=== PATIENT | female | born 1990 | race Caucasian/White ===

== ENCOUNTER 2019-05-02 10:10 | Emergency (ER) | payer BC ==
--- OUTSIDE RECORDS SUMMARY | 2019-05-02 10:19 | XMS REPORT ---
:1990 [facility] [address] [place] [address] Care Team Providers Name Role Phone Unavailable Unavailable Unavailable Problems This patient has no known problems. Allergies, Adverse Reactions, Alerts This patient has no known allergies or adverse reactions. Medications This patient has no known medications.
[2019-05-02 10:49] LABS: Absolute Lymphocytes (CBC) 2.3 K/uL (0.7-4.9); Basophils % 1.2 % (0-1.3); Hematocrit 38.2 % (36.0-45.0); Lymphocytes % 30.1 % (15.3-44.8); MPV 8.3 fL (7.6-11.3); RBC Red Blood Cell Count 4.31 M/uL (3.86-4.86)
[2019-05-02] MEDS ORDERED: NA CHLORIDE 0.9% 1,000 ML ONE (11:00)
[2019-05-02 11:02] LABS: Urine Blood TRACE (NEG); Urine Glucose NEGATIVE (NEG); Urine Protein 1+ (NEG); Urine Specific Gravity >1.030 (1.005-1.030)
--- NOTE | 2019-05-02 11:19 | RAD REPORT ---
EXAM DESCRIPTION: US - Transvaginal OB - 05/02/2019 11:06 am CLINICAL HISTORY: ABD CRAMPING, COMPARISON: No comparisons FINDINGS: A single gestational sac is seen within the uterus. The shape of the sac is within normal limits for gestational age. No yolk sac or embryo seen within the gestational sac. Based on mean sac diameter, gestational age is 5 weeks 5 days. The maternal adnexa and ovaries are within normal limits. Normal Doppler blood flow was demonstrated to both ovaries. IMPRESSION: Single gestational sac is seen within the uterus. No yolk sac or embryo is seen. This ca n still be a normal finding related to early stage of IUP. Advise followup ultrasound in 10-12 days a nd correlation with serial HCG levels.
[2019-05-02 11:29] LABS: Potassium 3.8 mmol/L (3.5-5.1)
--- NOTE | 2019-05-02 11:36 | ER ---
Nurse's Notes [facility] Name: Genna Daniel Age: 29 yrs Sex: Female : 1990 Arrival Date: 05/02/2019 Time: 10:13 Bed 19 Private MD: Diagnosis: Threatened Presentation: 05/01 10:21 Chief complaint: Patient states: Vaginal bleeding that began 2 days ago. Pt reports she ss is 6 weeks . Coronavirus screen: The patient has NOT traveled to a country currently being monitored by the [facility] within the last 14 days. Proceed with normal triage procedures. Ebola Screen: Patient denies exposure to infectious person. Patient denies travel to an Ebola-affected area in the 21 days before illness onset. Initial Sepsis Screen: Does the patient meet any 2 criteria? No. Patient's initial sepsis screen is negative. Does the patient have a suspected source of infection? No. Patient's initial sepsis screen is negative. Risk Assessment: Do you want to hurt yourself or someone else? Patient reports no desire to harm self or others. 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 - Social history:: Smoking status: Patient denies any tobacco usage or history of. - Family history:: not pertinent. Screenin:04 Abuse screen: Denies threats or abuse. Denies injuries from another. Nutritional hb screening: No deficits noted. Tuberculosis screening: No symptoms or risk factors identified. Fall Risk None identified. Assessment: 10:30 General: Appears in no apparent distress. Behavior is calm, cooperative. Pain: Pain hb currently is 0 out of 10 on a pain scale. Neuro: Level of Consciousness is awake, alert, obeys commands, Oriented to person, place, time, situation. Cardiovascular: Capillary refill < 3 seconds Patient's skin is warm and dry. Respiratory: Airway is patent Respiratory effort is even, unlabored, Respiratory pattern is regular, symmetrical. GI: No signs and/or symptoms were reported involving the gastrointestinal system. : Reports vaginal bleeding that is heavy flow. EENT: No signs and/or symptoms were reported regarding the EENT system. Derm: Skin is pink, warm \T\ dry. Musculoskeletal: No signs and/or symptoms reported regarding the musculoskeletal system. 11:15 Reassessment: Patient appears in no apparent distress at this time. Patient and/or hb family updated on plan of care and expected duration. Pain level reassessed. Patient is alert, oriented x 3, equal unlabored respirations, skin warm/dry/pink. Vital Signs: 10:21 BP 140 / 81; Pulse 83; Resp 16; Pulse Ox 100% on R/A; Weight 110.68 kg; Height 5 ft. 7 ss in. (170.18 cm); Pain 0/10; 11:04 BP 140 / 81; Pulse 80; Resp 16; Pulse Ox 100% on R/A; hb 10:21 Body Mass Index 38.22 (110.68 kg, 170.18 cm) ED Course: 10:13 Patient arrived in ED. rg4 10:16 Hiram Mendes MD is Attending Physician. malinda 10:23 Triage completed. ss 10:24 Arm band placed on left wrist. ss 10:26 Elisha Walters, RN is Primary Nurse. hb 10:28 Urine collected: clean catch specimen, clear. dh3 10:32 Patient has correct armband on for positive identification. Bed in low position. Call hb light in reach. Side rails up X 1. 10:38 Initial lab(s) drawn, by me, sent to lab. Inserted saline lock: 20 gauge in right dh3 antecubital area, using aseptic technique. Blood collected. 11:07 Transvaginal Ob In Process Unspecified. EDMS 11:31 No provider procedures requiring assistance completed. IV discontinued, intact, hb bleeding controlled, No redness/swelling at site. Pressure dressing applied. Administered Medications: 10:35 Drug: NS 0.9% 1000 ml Route: IV; Rate: 1 bolus; Site: right antecubital; hb Outcome: 11:35 Discharge ordered by . malinda 11:42 Discharged to home ambulatory. hb 11:42 Condition: stable 11:42 Discharge instructions given to patient, Instructed on discharge instructions, follow up and referral plans. medication usage, Demonstrated understanding of instructions, follow-up care, medications, Prescriptions given X 1. 12:10 Patient left the ED. hb Signatures: Dispatcher [employer] EDHiram Mclaughlin MD MD cha Smirch, Shelby, RN RN ss Baxter, Heather, RN RN hb Garcia, Rubi [facility] Alana Armijo 3
--- NOTE | 2019-05-02 11:36 | EDPHYS ---
Physician Documentation [facility] Name: Genna Daniel Age: 29 yrs Sex: Female : 1990 Arrival Date: 05/02/2019 Time: 10:13 Bed 19 Private MD: ED Physician Hiram Mendes HPI: 05/01 11:28 This 29 yrs old Female presents to ER via Ambulatory with complaints of malinda Vaginal Bleeding, + Preg <12wks. 11:28 The patient presents to the emergency department with vaginal bleeding, that is light. malinda The estimated gestational age is 6 weeks. course: care: private OB physician, Dr. muniz. Associated signs and symptoms: The patient has no apparent associated signs or symptoms. 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 - Social history:: Smoking status: Patient denies any tobacco usage or history of. - Family history:: not pertinent. ROS: 11:30 Constitutional: Negative for fever, chills, and weight loss, Eyes: Negative for injury, malinda pain, redness, and discharge, ENT: Negative for injury, pain, and discharge, Neck: Negative for injury, pain, and swelling, Cardiovascular: Negative for chest pain, palpitations, and edema, Respiratory: Negative for shortness of breath, cough, wheezing, and pleuritic chest pain, Abdomen/GI: Negative for abdominal pain, nausea, vomiting, diarrhea, and constipation, Back: Negative for injury and pain, MS/Extremity: Negative for injury and deformity, Skin: Negative for injury, rash, and discoloration, Neuro: Negative for headache, weakness, numbness, tingling, and seizure, Psych: Negative for depression, anxiety, suicide ideation, homicidal ideation, and hallucinations, Allergy/Immunology: Negative for hives, rash, and allergies, Endocrine: Negative for neck swelling, polydipsia, polyuria, polyphagia, and marked weight changes, Hematologic/Lymphatic: Negative for swollen nodes, abnormal bleeding, and unusual bruising. 11:30 : Positive for vaginal bleeding. Exam: 11:33 Constitutional: This is a well developed, well nourished patient who is awake, alert, malinda and in no acute distress. Head/Face: Normocephalic, atraumatic. Eyes: Pupils equal round and reactive to light, extra-ocular motions intact. Lids and lashes normal. Conjunctiva and sclera are non-icteric and not injected. Cornea within normal limits. Periorbital areas with no swelling, redness, or edema. ENT: Nares patent. No nasal discharge, no septal abnormalities noted. Tympanic membranes are normal and external auditory canals are clear. Oropharynx with no redness, swelling, or masses, exudates, or evidence of obstruction, uvula midline. Mucous membranes moist. Neck: Trachea midline, no thyromegaly or masses palpated, and no cervical lymphadenopathy. Supple, full range of motion without nuchal rigidity, or vertebral point tenderness. No Meningismus. Chest/axilla: Normal chest wall appearance and motion. Nontender with no deformity. No lesions are appreciated. Cardiovascular: Regular rate and rhythm with a normal S1 and S2. No gallops, murmurs, or rubs. Normal PMI, no JVD. No pulse deficits. Respiratory: Lungs have equal breath sounds bilaterally, clear to auscultation and percussion. No rales, rhonchi or wheezes noted. No increased work of breathing, no retractions or nasal flaring. Abdomen/GI: Soft, non-tender, with normal bowel sounds. No distension or tympany. No guarding or rebound. No evidence of tenderness throughout. Back: No spinal tenderness. No costovertebral tenderness. Full range of motion. Skin: Warm, dry with normal turgor. Normal color with no rashes, no lesions, and no evidence of cellulitis. MS/ Extremity: Pulses equal, no cyanosis. Neurovascular intact. Full, normal range of motion. Neuro: Awake and alert, GCS 15, oriented to person, place, time, and situation. Cranial nerves II-XII grossly intact. Motor strength 5/5 in all extremities. Sensory grossly intact. Cerebellar exam normal. Normal gait. Psych: Awake, alert, with orientation to person, place and time. Behavior, mood, and affect are within normal limits. Vital Signs: 10:21 BP 140 / 81; Pulse 83; Resp 16; Pulse Ox 100% on R/A; Weight 110.68 kg; Height 5 ft. 7 ss in. (170.18 cm); Pain 0/10; 11:04 BP 140 / 81; Pulse 80; Resp 16; Pulse Ox 100% on R/A; hb 10:21 Body Mass Index 38.22 (110.68 kg, 170.18 cm) ss MDM: 10:16 Patient medically screened. [facility] 11:34 Data reviewed: vital signs, nurses notes, lab test result(s), EKG, radiologic studies, [facility] ultrasound. 05/01 10:24 Order name: Quantitative Hcg [facility] 05/01 10:24 Order name: Abo/rh Typing; Complete Time: 11:28 [facility] 05/01 10:24 Order name: Basic Metabolic Panel [facility] 05/01 10:24 Order name: CBC with Diff; Complete Time: 11:28 [facility] 05/01 10:24 Order name: Urine Culture [facility] 05/01 10:30 Order name: Urine Dipstick--Ancillary (enter results); Complete Time: 11:28 05/01 10:24 Order name: Urine Test (obtain specimen); Complete Time: 10:43 [facility] 05/01 10:24 Order name: IV Saline Lock; Complete Time: 10:43 [facility] 05/01 10:24 Order name: Labs collected and sent; Complete Time: 10:43 [facility] 05/01 10:24 Order name: NPO; Complete Time: 10:43 [facility] 05/01 10:24 Order name: Urine Dipstick-Ancillary (obtain specimen); Complete Time: 10:43 [facility] 05/01 10:24 Order name: US Transvaginal Ob; Complete Time: 11:28 [facility] 05/01 10:30 Order name: Urine --Ancillary (enter results); Complete Time: 11:28 05/01 10:54 Order name: Labs - recollect needed: collect abo/rh no charge bd Administered Medications: 10:35 Drug: NS 0.9% 1000 ml Route: IV; Rate: 1 bolus; Site: right antecubital; hb Disposition: 05/02/19 11:35 Discharged to Home. Impression: Threatened . - Condition is Stable. - Discharge Instructions: Threatened Miscarriage, Vaginal Bleeding During , First Trimester, First Trimester of , [id number], First Trimester of , Threatened Miscarriage, [id number], Pelvic Rest. - Prescriptions for Vitamin 27- 0.8 mg Oral Tablet - take 1 tablet by ORAL route once daily; 30 tablet. - Medication Reconciliation Form, Thank You Letter, Antibiotic Education, Prescription Opioid Use form. - Follow up: Private Physician; When: 2 - 3 days; Reason: Recheck today's complaints, Continuance of care, Re-evaluation by your physician. - Problem is new. - Symptoms have improved. Signatures: Dispatcher [employer] EDMS Georgiana Saravia Corey, MD MD cha Smirch, Shelby, RN RN Elisha Walters RN RN hb Corrections: (The following items were deleted from the chart) 12:10 11:35 05/02/2019 11:35 Discharged to Home. Impression: Threatened . Condition hb is Stable. Forms are Medication Reconciliation Form, Thank You Letter, Antibiotic Education, Prescription Opioid Use. Follow up: Private Physician; When: 2 - 3 days; Reason: Recheck today's complaints, Continuance of care, Re-evaluation by your physician. Problem is new. Symptoms have improved. malinda
[2019-05-02 12:20] VITALS: BP 140/81; O2SAT 100
== END 2019-05-02 12:10 | disposition home or self-care (01) ==
LOC: ER 10:10
DX: O20.0 Threatened abortion (principal); Z3A.01 Less than 8 weeks gestation of pregnancy
CPT/HCPCS: 87088; 85025; 87086; 80048; 36415; 86900; 81025; 86901; 84702; 81003; 76817; 99284; J7030

== ENCOUNTER 2021-01-06 23:06 | Emergency (ER) | payer BC, SELFPAY ==
--- OUTSIDE RECORDS SUMMARY | 2021-01-06 23:09 | XMS REPORT | Continuity of Care Document ---
:1990 Author Organization [facility] t Address [address] [place] [address] Care Team Providers Name Role Phone May Bishop Attending Clinician Unavailable Gambino Attending Clinician Unavailable Doctor Unassigned, Name Attending Clinician Unavailable May Bishop Admitting Clinician Unavailable Physician, Primary or Family Admitting Clinician Unavailabl e Payers Payer Name Policy Type Policy Number Effective Date Expiration Date S ource Problems This patient has no known problems. Allergies, Adverse Reactions, Alerts Allergy Allergy Status Severity Reaction(s) Onset Inactive Treating Comm ents Source Name Type Date Date Clinician No Known DA Active U 2019-02 [facility] [place] No Known DA Active U 2019-02 [facility] No Known DA Active U 2019-02 [facility] No Known DA Active U 2019-02 [facility] 0 [facility] Medications This patient has no known medications. Procedures Procedure Date / Time Performed Performing Clinician [facility] gloria [id number] 2019-12-21 00:00:00 MILJO.01 [facility] Encounters Start End Encounter Admission Attending Care Care Encounter Source Date/Time Date/Time Type Type Clinicians Facility Department ID 2019-12-21 Inpatient MARLON Martinez LD [id number] [facility] 12:00:00 Tena [id number] [facility] [place] 2019-12-19 Inpatient MARLON Martinez LD [id number] [facility] 12:00:00 Tena [id number] [facility] 2019-11-29 Inpatient MARLON Martinez LD [id number] [facility] 12:00:00 Tena [facility] 2019-11-25 2019-11-25 Outpatient Camila, [facility] [id number] [facility] 09:00:00 09:00:00 Alexi [facility] 2019-08-05 2019-08-05 Outpatient Gambino, [facility] [id number] [facility] 10:00:00 10:00:00 Alexi [id number] [facility] 2019-06-17 2019-06-17 Orders Doctor HERMELINDO [id number] 00:00:00 00:00:00 Only Unassigned, MAITE [id number] [place] [facility] [id number] Results Test Description Test Time Test Comments Results Result Comments Source HGB HCT 2019-12-22 07:45:00 Test Item Value Reference Range Interpretation Comme nts HEMOGLOBIN (test code = HGB) 8.1 g/dL 10.7-13.9 L HEMATOCRIT (test code = HCT) 26.0 % 32.1-42.1 L Results verified by repeat analysis COVID 19 Asymptomatic IH [id number] 14:23:00 Test Item Value Reference Range Interpretation Comments COVID 19 NEGATIVE NEGATIVE This test has b een Asymptomatic IH AG authorize d only for the (test code = detection ofpro teins from COVNONPUIAG) SARS-CoV-2, not for any other viruses orpathogens. N egative results should be treated as presumptive andconfirmed wi th a molecular assay , if necessary for patientmanageme nt. Negative result s do not rule out COVID- 19 andshould not b e used as the sole basis for treatment orpat ient management deci sions, including infec tion controldecision s. Negative result s should be considered i n thecontext of a patient's recent exposure s, history and thepresence of clinical signs and symptoms consis tent withCOVID-19. T his test has not been FD A cleared or approved; th e test hasbeen authori zed by FDA under an Emerge ncy Use Authorization(E UA) for use by laborato torsten certified under the CLIA thatmeet the re quirements to perform mode rate, high or waivedcomple xity tests. This jamal t is authorized for use at thePoint of Car e (POC), i.e., in patien t care settingsoperati ng under a CLIA Certificat e of Waiver, Certifi justo ofCompliance, o r Certificate of Accreditation. This test is only authori zed for the duration of thedeclaration that circumstances e xist justifying theauthorizatio n of emergency use o f in vitro diagnostic test sfor detection and/o r diagnosis of CO VID-19 under Gzbjvdm78 4(b)(1) of the Act, 21 U.S .C. 360bbb-3(b)(1), unless theauthorizatio n is terminated or r evoked sooner. AG HEPATITIS B [id number] 13:51:00 Test Item Value Reference Range Interpretation Comments AG HEPATITIS B SURFACE (test code NONREACTIVE NONREACTIVE = HBSAG) IS CONSENT FORM SIGNED FOR HIV TESTING? YAB HEPATITIS C [id number] 13:51:00 Test Item Value Reference Range Interpretation Comments AB HEPATITIS C (test code = NONREACTIVE NONREACTIVE HCVAB) SIGNAL TO CUTOFF (test code = 0.04 <0.80 N CUTOFF) IS CONSENT FORM SIGNED FOR HIV TESTING? YAB [id number] 13:51:00 Test Item Value Reference Range Interpretation Comments AB TREPONEMA (test code = TREPAB) NONREACTIVE NONREACTIVE IS CONSENT FORM SIGNED FOR HIV TESTING? YAB HIV 1 13:51:00 Test Item Value Reference Range Interpretation Comments AB HIV 1 2 (test NONREACTIVE NONREACTIVE Done by Jose Elias Olivo code = [id number]) 4th Gen HIV Ag/Ab Combo Screen IS CONSENT FORM SIGNED FOR HIV TESTING? YAG HEPATITIS B [id number] 13:24:00 Test Item Value Reference Range Interpretation Comments AG HEPATITIS B SURFACE (test code NONREACTIVE NONREACTIVE = HBSAG) IS CONSENT FORM SIGNED FOR HIV TESTING? YAB HEPATITIS C [id number] 13:24:00 Test Item Value Reference Range Interpretation Comments AB HEPATITIS C (test code = HCVAB) NONREACTIVE SIGNAL TO CUTOFF (test code = CUTOFF) <0.80 IS CONSENT FORM SIGNED FOR HIV TESTING? YAB [id number] 13:24:00 Test Item Value Reference Range Interpretation Comments AB TREPONEMA (test code = TREPAB) NONREACTIVE NONREACTIVE IS CONSENT FORM SIGNED FOR HIV TESTING? YAB HIV 1 13:24:00 Test Item Value Reference Range Interpretation Comments AB HIV 1 2 (test code = [id number]) NONREACTIVE IS CONSENT FORM SIGNED FOR HIV TESTING? YAG HEPATITIS B [id number] 13:23:00 Test Item Value Reference Range Interpretation Comments AG HEPATITIS B SURFACE (test code = NONREACTIVE HBSAG) IS CONSENT FORM SIGNED FOR HIV TESTING? YAB HEPATITIS C [id number] 13:23:00 Test Item Value Reference Range Interpretation Comments AB HEPATITIS C (test code = HCVAB) NONREACTIVE SIGNAL TO CUTOFF (test code = CUTOFF) <0.80 IS CONSENT FORM SIGNED FOR HIV TESTING? YAB [id number] 13:23:00 Test Item Value Reference Range Interpretation Comments AB TREPONEMA (test code = TREPAB) NONREACTIVE NONREACTIVE IS CONSENT FORM SIGNED FOR HIV TESTING? YAB HIV 1 13:23:00 Test Item Value Reference Range Interpretation Comments AB HIV 1 2 (test code = [id number]) NONREACTIVE IS CONSENT FORM SIGNED FOR HIV TESTING? YURINALYSIS W/O [id number] 13:03:00 Test Item Value Reference Range Interpretation Comments UA GLUCOSE DIPSTICK (test code = NEGATIVE NEGATIVE DGLUU) UA KETONE DIPSTICK (test code = NEGATIVE NEGATIVE KETU) UA PROTEIN DIPSTICK (test code = NEGATIVE NEGATIVE PROU) IS NURSE PERFORMING TEST? NCBC W/AUTO [id number] 12:49:00 Test Item Value Reference Range Interpretation Comments WHITE BLOOD CELL (test code = WBC) 12.2 K/mm3 6.6-12.1 H RED BLOOD CELL (test code = RBC) 3.92 M/mm3 3.45-5.01 N HEMOGLOBIN (test code = HGB) 11.3 g/dL 10.7-13.9 N HEMATOCRIT (test code = HCT) 35.5 % 32.1-42.1 N MEAN CELL VOLUME (test code = MCV) 91 fL 84.1-94.8 N MEAN CELL HGB (test code = MCH) 28.8 pg 27-35 N MEAN CELL HGB CONCETRATION (test 31.8 gm/dL 32.2-34.1 L code = MCHC) RED CELL DISTRIBUTION WIDTH (test 13.6 % 12.4-16.5 N code = RDW) PLATELET COUNT (test code = PLT) 233 K/mm3 133-385 N MEAN PLATELET VOLUME (test code = 12.1 fl 9.1-12.7 N MPV) NEUTROPHIL % (test code = NT%) 67.9 % 56.5-79.4 N LYMPHOCYTE % (test code = LY%) 20.0 % 14.3-34.3 N MONOCYTE % (test code = MO%) 9.5 % 5.1-10.4 N EOSINOPHIL % (test code = EO%) 1.1 % 0.1-3.0 N BASOPHIL % (test code = BA%) 0.5 % 0.1-1.0 N NEUTROPHIL # (test code = NT#) 8.3 K/mm3 LYMPHOCYTE # (test code = LY#) 2.5 K/mm3 MONOCYTE # (test code = MO#) 1.2 K/mm3 EOSINOPHIL # (test code = EO#) 0.14 K/mm3 BASOPHIL # (test code = BA#) 0.1 K/mm3 RBC MORPHOLOGY REQUIRED (test code NORMAL NORMAL = RBCM) PLATELET MORPHOLOGY REQUIRED (test NORMAL NORMAL code = PLTMR) AG HEPATITIS B [id number] 13:29:00 Test Item Value Reference Range Interpretation Comments AG HEPATITIS B SURFACE (test code NONREACTIVE NONREACTIVE = HBSAG) Comments to [employer]rier: BRIANNAR 31IS CONSENT FORM SIGNED FOR HIV TESTING? YAB HEPATITIS C [id number] 13:29:00 Test Item Value Reference Range Interpretation Comments AB HEPATITIS C (test code = NONREACTIVE NONREACTIVE HCVAB) SIGNAL TO CUTOFF (test code = 0.06 <0.80 N CUTOFF) Comments to [employer]rier: LDR 31IS CONSENT FORM SIGNED FOR HIV TESTING? YAB [id number] 13:29:00 Test Item Value Reference Range Interpretation Comments AB TREPONEMA (test code = TREPAB) NONREACTIVE NONREACTIVE Comments to [employer]: LDR 31IS CONSENT FORM SIGNED FOR HIV TESTING? YAB HIV 1 13:29:00 Test Item Value Reference Range Interpretation Comments AB HIV 1 2 (test NONREACTIVE NONREACTIVE Done by Jose Elias domenicajose elias Centaur code = [id number]) 4th Gen HIV Ag/Ab Combo Screen Comments to [employer]rier: LDR 31IS CONSENT FORM SIGNED FOR HIV TESTING? YCOVID 19 Asymptomatic IH [id number] 13:24:00 Test Item Value Reference Range Interpretation Comments COVID 19 NEGATIVE NEGATIVE This test has b een Asymptomatic IH AG authorize d only for the (test code = detection ofpro teins from COVNONPUIAG) SARS-CoV-2, not for any other viruses orpathogens. N egative results should be treated as presumptive andconfirmed wi th a molecular assay , if necessary for patientmanageme nt. Negative result s do not rule out COVID- 19 andshould not b e used as the sole basis for treatment orpat ient management deci sions, including infec tion controldecision s. Negative result s should be considered i n thecontext of a patient's recent exposure s, history and thepresence of clinical signs and symptoms consis tent withCOVID-19. T his test has not been FD A cleared or approved; th e test hasbeen authori zed by FDA under an Emerge ncy Use Authorization(E UA) for use by laborato torsten certified under the CLIA thatmeet the re quirements to perform mode rate, high or waivedcomple xity tests. This jamal t is authorized for use at thePoint of Car e (POC), i.e., in patien t care settingsoperati ng under a CLIA Certificat e of Waiver, Certifi justo ofCompliance, o r Certificate of Accreditation. This test is only authori zed for the duration of thedeclaration that circumstances e xist justifying theauthorizatio n of emergency use o f in vitro diagnostic test sfor detection and/o r diagnosis of CO VID-19 under Alwfbxf23 4(b)(1) of the Act, 21 U.S .C. 360bbb-3(b)(1), unless theauthorizatio n is terminated or r evoked sooner. Comments to [employer]rier: LDR 31AG HEPATITIS B [id number] 12:51:00 Test Item Value Reference Range Interpretation Comments AG HEPATITIS B SURFACE (test code NONREACTIVE NONREACTIVE = HBSAG) Comments to [employer]rier: LDR 31IS CONSENT FORM SIGNED FOR HIV TESTING? YAB HEPATITIS C [id number] 12:51:00 Test Item Value Reference Range Interpretation Comments AB HEPATITIS C (test code = HCVAB) NONREACTIVE SIGNAL TO CUTOFF (test code = CUTOFF) <0.80 Comments to [employer]rier: LDR 31IS CONSENT FORM SIGNED FOR HIV TESTING? YAB [id number] 12:51:00 Test Item Value Reference Range Interpretation Comments AB TREPONEMA (test code = TREPAB) NONREACTIVE NONREACTIVE Comments to [employer]rier: LDR 31IS CONSENT FORM SIGNED FOR HIV TESTING? YAB HIV 1 12:51:00 Test Item Value Reference Range Interpretation Comments AB HIV 1 2 (test code = [id number]) NONREACTIVE Comments to [employer]rier: LDR 31IS CONSENT FORM SIGNED FOR HIV TESTING? YCBC W/AUTO [id number] 12:04:00 Test Item Value Reference Range Interpretation Comments WHITE BLOOD CELL (test code = WBC) 10.5 K/mm3 6.6-12.1 N RED BLOOD CELL (test code = RBC) 3.77 M/mm3 3.45-5.01 N HEMOGLOBIN (test code = HGB) 11.0 g/dL 10.7-13.9 N HEMATOCRIT (test code = HCT) 34.9 % 32.1-42.1 N MEAN CELL VOLUME (test code = MCV) 93 fL 84.1-94.8 N MEAN CELL HGB (test code = MCH) 29.2 pg 27-35 N MEAN CELL HGB CONCETRATION (test 31.5 gm/dL 32.2-34.1 L code = MCHC) RED CELL DISTRIBUTION WIDTH (test 14.0 % 12.4-16.5 N code = RDW) PLATELET COUNT (test code = PLT) 213 K/mm3 133-385 N MEAN PLATELET VOLUME (test code = 11.4 fl 9.1-12.7 N MPV) NEUTROPHIL % (test code = NT%) 66.3 % 56.5-79.4 N LYMPHOCYTE % (test code = LY%) 22.1 % 14.3-34.3 N MONOCYTE % (test code = MO%) 8.6 % 5.1-10.4 N EOSINOPHIL % (test code = EO%) 1.4 % 0.1-3.0 N BASOPHIL % (test code = BA%) 0.7 % 0.1-1.0 N NEUTROPHIL # (test code = NT#) 7.0 K/mm3 LYMPHOCYTE # (test code = LY#) 2.3 K/mm3 MONOCYTE # (test code = MO#) 0.9 K/mm3 EOSINOPHIL # (test code = EO#) 0.15 K/mm3 BASOPHIL # (test code = BA#) 0.1 K/mm3 RBC MORPHOLOGY REQUIRED (test code NORMAL NORMAL = RBCM) PLATELET MORPHOLOGY REQUIRED (test NORMAL NORMAL code = PLTMR) - US PREG UT [id number] 10:45:00 Patient Name: MAHESH MORELOS Unit No: [id number] EXAMS: CPT CODE: [id number] US PREG UT TRANSVAGINAL [address] [facility] [address] [place] [address] OBSTETRICAL ULTRASOUND REPORT Pat. Name: MAHESH MORELOS Pat. No: [id number] Study Date: 11/25/2019 9:38am , Age: 11 1990, 29 Pregnancies: 1 LMP: Unk nown GA by 1st: 35w3d GA by US: 37w2d GA Selected: 35w3d (From Known E) NAOMI: 12/27/2019 Referring MD: Alexi Gambino Associate Store Manager: Yakelin Pulido RDMS CPT4: USPRUTTRVG Admitting MD: Alexi Gambino Hist/Ind: Scan 2: Size and date inconsistancy MEASUREMENTS AGE GROWTH EVALUATION Measurement GA Range Srce %for GA Ratios ----- ---- ------- BPD 9.3 cm 38w3d (41y4p-90f8c) Hadl BPD >95 FL/BPD 0.75 (0.71 - 0.87) HC 34.3 cm 39w0d (98b4r-30s4l) Hadl HC >95 FL/AC 0.20 (0.20 - 0.24) APD 10.8 cm APD HC/AC 0.99 (0.93 - 1.12) TAD 11.3 cm TAD CI 0.79 (0.70 - 0.86) AC 34.7 cm 38w6d (36w3d- 41w3d) Hadl AC >95 FL 7.0 cm 35w5d (18n7i-20j6i) Hadl FL 54% HL 6.1 cm 35w2d (70e2a-71q3j) Yefri HL 49% GA for sonogram 37w2d (57c5z-98r5e) Weight Estimate: based on (BPD,HC,AC,FL) Hadlock Weight: 3374 gm (2881- 3867) Hadlo : 7lbs, 7oz Normal: 2524 gm (7878-2569) Brenn Wt% >90 for 35.4 wks Cervical Length: 4.4 cm Heart Rate: 172 bpm Amniotic Fluid Index: 20.9cm (07.8-24.9) Q1: 3.7cm Q2: 2.8cm Q3: 8.1cm Q4: 6.3cm MATERNAL ANATOMY Ovaries LxHxW (cm) Right 3.2 x 1.9 x 2.7 Vol: 8.6cc Left 2.9 x 2.3 x 2.2 Vol: 7.7cc CLINICAL SUMMARY Type of Gestation: Crawford Intrauterine pregnancyin breech presentation. size is large for gestational age. growth: Suspect LGA fetus (>90%) motion and organs seen: [facility] NAME:MAHESH MORELOS Radiology Department PHYS: Alexi Franco [address] : 1990 AGE: 29 SEX: [place] [address] LOC: ROXANA PHONE #: [phone] EXAM DATE: 11/25/2019 STATUS: RUDI CLI FAX #: [phone] RAD NO: Page 1 Signed Report (CONTINUED) Patient Name: MAHESH MORELOS Unit No: [id number] EXAMS: CPT CODE: [id number] US PREG UT TRANSVAGINAL [address]603 <Continued> somatic activity observed body and limb movements seen Regular cardiac rhythm observed Placental location: Anterior Placental maturity : Grade 2 There is no evidence of placenta previa. Amniotic fluid volume is normal. Uterus and adnexa: No significant abnormality is seen. Thank you for allowing us to participate in the care of this patient. Ana Cristina España M.D. Electronic Signature 11/25/2019 10:45am at 1045 Reported and signed by: Zahida España MD CC: Hammad gist: Yakelin Pulido, [facility] Probe: [id number] Trnscrbd D/ (1045) t.[email or web address] Orig Print D/T: S: 11/30/2019 (1023) [facility] NAME: MAHESH MORELOS Radiology Department PHYS: Alexi Franco [address] : 1990 AGE: 29 SEX: F [place] [address] LOC: CinthyaRAD PHONE #: [phone] EXAM DATE: 11/25/2019 STATUS: DEP CLI FAX #: [phone] RAD NO: Page 2 Signed Report Patient Name: MAHESH MORELOS Unit No: [id number] EXAMS: CPT CODE: [id number] US PREG UT TRANSVAGINAL [address] <Continued> [facility] NAME: MAHESH MORELOS Radiology Department PHYS: Alexi Franco [address] : 1990 AGE: 29 SEX: F [place] [address] LOC: CinthyaRAD PHONE #: [phone] EXAM DATE: 11/25/2019 STATUS: DEP CLI FAX #: [phone] RAD NO: Page 3 Signed Report- US FLW UP 2019-11-25 10:45:00 Patient Name: MAHESH MORELOS Unit No: [id number] EXAMS: CPT CODE: [id number] US FLW UP [address] [facility] [address] [place], [place] [address] OBSTETRICAL ULTRASOUND REPORT Pat. Name: MAHESH MORELOS Pat. No: [id number] Study Date: 11/25/2019 9:38am , Age: 11 1990, 29 Pregnancies: 1 LMP: Unk nown GA by 1st: 35w3d GA by US: 37w2d GA Selected: 35w3d (From Known E) NAOMI: 12/27/2019 Referring MD: Tena Bishop M.D. Associate Store Manager: Yakelin Pulido RDMS CPT4: USPREGFU Admitting MD: ALEXI GAMBINO Hist/Ind: Scan 2: Size and date inconsistancy MEASUREMENTS AGE GROWTH EVALUATION Measurement GA Range Srce %for GA Ratios ----- ---- ------- BPD 9.3 cm 38w3d (11b9m-94n2b) Hadl BPD >95 FL/BPD 0.75 (0.71 - 0.87) HC 34.3 cm 39w0d (00r5c-64d5k) Hadl HC >95 FL/AC 0.20 (0.20 - 0.24) APD 10.8 cm APD HC/AC 0.99 (0.93 - 1.12) TAD 11.3 cmTAD CI 0.79 (0.70 - 0.86) AC 34.7 cm 38w6d (15y4p-25j7g) Hadl AC >95 FL 7.0 cm 35w5d (00p1p-30d5d) Hadl FL 54% HL 6.1 cm 35w2d (45b0l-69p7t) Yefri HL 49% GA for sonogram 37w2d (85q6j-58x1c) Weight Estimate: based on (BPD,HC,AC,FL) Hadlock Weight: 3374 gm (3493-6653) Hadlo : 7lbs, 7oz Normal: 2524 gm (0225-1824) Brenn Wt% >90 for 35.4 wks Cervical Length: 4.4 cm Heart Rate: 172 bpm Amniotic Fluid Index: 20.9cm (07.8-24.9) Q1: 3.7cm Q2: 2.8cm Q3: 8.1cm Q4: 6.3cm MATERNAL ANATOMY Ovaries LxHxW (cm) Right 3.2 x 1.9 x 2.7 Vol: 8.6cc Left 2.9 x 2.3 x 2.2 Vol: 7.7cc CLINICAL SUMMARY Type of Gestation: Crawford Intrauterine in breech presentation. size is large for gestational age. growth: Suspect LGA fetus (>90%) motion and organs seen: [facility] NAME: TAMYMAHESH Radiology Department PHYS: Alexi Franco [address] : 1990 AGE: 29 SEX: [place] LOC: ROXANA PHONE #: [phone] EXAM DATE: 11/25/2019 STATUS: REG CLI FAX #: [phone] RAD NO: Page 1 Signed Report (CONTINUED) Patient Name: MAHESH MORELOS Unit No: [id number] EXAMS: CPT CODE: [id number] US FLW UP [address] <Continued> somatic activity observed body and limb movements seen Regular cardiac rhythm observed Placental location: Anterior Placental maturity : Grade 2 There is no evidence of placenta previa. Amniotic fluid volume is normal. Uterus and adnexa: No significant abnormality is seen. Thank you for allowing us to participate in the care of this patient. Michaela España M.D. Electronic Signature 11/25/2019 10:45am at 1045 Reported and signed by: Zahida España MD CC: Tena Bishop MD Technologist: Yakelin Pulido RDMS Probe: Trnscrbd D/ (1045) JayeCER Orig Print D/T: S: 11/25/2019 (1045) [facility] NAME: MAHESH MORELOS Radiology Department PHYS: Alexi Rojas [address] : 1990 AGE: 29 SEX: [place], [place] [address] LOC: CinthyaRAD PHONE #: [phone] EXAM DATE: 11/25/2019 STATUS: REG CLI FAX #: [phone] RAD NO: Page 2 Signed Report Patient Name: MAHESH MORELOS Unit No: [id number] EXAMS:CPT CODE: [id number] US FLW UP [address]3862 <Continued> [facility] NAME: MAHESH MORELOS Radiology Department PHYS: Alexi Franco [address] : 1990 AGE: 29 SEX: [place] [address] LOC: CinthyaRAD PHONE #: [phone] EXAM DATE: STATUS: REG CLI FAX #: [phone] RAD NO: Page 3 Signed Report- US PREG AFTER [id number] 11:33:00 Patient Name: MAHESH MORELOS Unit No: [id number] EXAMS: CPT CODE: [id number] US PREG AFTER TRI [address] [facility] [address] [place] [address] OBSTETRICAL ULTRASOUND REPORT Pat. Name: MAHESH MORELOS Pat. No: [id number] Study Date: 08/05/2019 10:38am , Age: 11 1990, 29 Pregnancies: 1 LMP: Unknown GA by US: 19w4d GA Selected: 19w3d (From Known E) NAOMI: 12/27/2019 Referring MD: ALEXI GAMBINO Associate Store Manager: Kelly Clinton RDMS CPT4: IUJSXHS6A Hist/Ind: SCAN 1 ANATOMY IN ASUREMENTS AGE GROWTH EVALUATION Measurement GA Range Srce %for GA Ratios ----- ---- ------- BPD 4.5 cm 19w4d (02j0w-92j9g) Hadl BPD 55% FL/BPD 0.71 HC 17.5 cm 19w6d (66g9b-68n9d) Hadl HC 63% FL/AC 0.22 APD 4.3 cm APD HC/AC 1.22 (1.06 - 1.25) TAD 4.8 cm TAD CI 0.75 (0.70 - 0.86) AC 14.3 cm 19w2d (46m1m-52q5g) Hadl AC 48% FL 3.2 cm 19w4d (31d5g-95c4u) Hadl FL 54% HL 2.9 cm 19w3d (18f6g-82b6h) Yefri HL 50% GA for sonogram 19w4d (33i0d-73n8v) Weight Estimate: based on (BPD,HC,AC,FL) Hadlock Weight: 314 gm (268-360) Hadlock : 0lbs, 11oz Cervical Length: 4.2 cm Heart Rate: 155 bpm MATERNAL ANATOMY Ovaries LxHxW (cm) Left 2.4 x 1.6 x 2.3 Vol: 4.6cc CLINICAL SUMMARY Typeof Gestation: Crawford Intrauterine in vertex presentation. size is appropriate for gestational age. motion and organs seen: heart motion seen body and limb movements seen Four chamber heart observed Left ventricular outflow tract (LVOT) seen Right ventricular outflow tract (RVOT) seen Regular cardiac rhythm observed Normal intracranial anatomy seen Umbilical cord insertion in fetus seen [facility] NAME: MAHESH MORELOS Radiology Department PHYS: Alexi Franco [address] : 1990 AGE: 29 SEX: F [place], [place] [address] LOC: ROXANA PHONE #:[phone] EXAM DATE: 08/05/2019 STATUS: REG CLI FAX #: [phone] RAD NO: Page 1 Signed Report (CONTINUED) PatientName: MAHESH MORELOS Unit No: [id number] EXAMS: CPT CODE: [id number] US PREG AFTER 1ST TRI [address] <Continued> stomach, Renal Fossa, Bladder and Spine seen Three vessel umbilical cord noted abnormalities observed: None seen at this exam Placental location: Anterior Placental maturity : Grade 2 There is no evidence of placenta previa. Amniotic fluid volume is normal. Uterus and adnexa: No significant abnormality is seen. Maribel Woods M.D. Electronic Signature 08/05/2019 11:33am at 1133 Reported and signed by:Maribel Woods MD CC: Alexi Gambino Technologist: Kelly Clinton RDMS Probe: Trnscrbd D/ (1133) tJTG Orig Print D/T: S: 08/05/2019 (1134) [facility] NAME: ADELAMILLIMAHESH Radiology Department PHYS: Alexi Franco [address] : 1990 AGE: 29 SEX: F [place] [address] LOC: Gavin.RAD PHONE #: [phone] DATE: 08/05/2019 STATUS: REG CLI FAX #: [phone] RAD NO: Page2 Signed Report Patient Name: MAHESH MORELOS Unit No: [id number] EXAMS: CPT CODE: [id number] US PREG AFTER 1ST TRI [address] <Continued> [facility] NAME: MAHESH MORELOS Radiology Department PHYS: Alexi Franco [address] : 1990 AGE: 29 SEX: F [place] [address] LOC: [place].RAD PHONE #: [phone] EXAM DATE: 08/05/2019STATUS: REG CLI FAX #: [phone] RAD NO: Page 3Signed Report
[2021-01-07] MEDS ORDERED: LIDOCAINE 1% MPF 5 ML VIAL ONE (00:06)
[2021-01-07] MEDS ORDERED: HYDROCODONE/APAP 5/325 MG TAB ONE (00:07)
[2021-01-07] MEDS ORDERED: AMOX/K CLAV 875 MG TAB ONE (01:47)
--- NOTE | 2021-01-07 01:55 | ER ---
Nurse's Notes [facility] Name: Genna Danile Age: 30 yrs Sex: Female : 1990 Arrival Date: 01/06/2021 Time: 23:08 Bed 12 Private MD: Diagnosis: Bitten by dog;Laceration without foreign body of right middle finger without damage to nail Presentation: 01/06 23:33 Chief complaint: Patient states: Pt was pt by family pet on Right middle finger around vg1 2200. States pet is up to date on vaccinations. Dog is a blue knowledge architect mix and did not contact animal control or police. Coronavirus screen: Vaccine status: Patient reports being unvaccinated. Ebola Screen: Patient negative for fever greater than or equal to 101.5 degrees Fahrenheit, and additional compatible Ebola Virus Disease symptoms. Initial Sepsis Screen: Does the patient meet any 2 criteria? No. Patient's initial sepsis screen is negative. Does the patient have a suspected source of infection? No. Patient's initial sepsis screen is negative. Risk Assessment: Do you want to hurt yourself or someone else? Patient reports no desire to harm self or others. Onset of symptoms was January 06, 2021. 23:33 Method Of Arrival: Ambulatory [facility] 23:33 Acuity: MAURILIO 4 vg1 Triage Assessment: 23:38 Bite description: bite sustained to palmar aspect of middle phalanx of right middle vg1 finger by a dog, animal information: vaccination(s) is current. General: Appears in no apparent distress. uncomfortable, Behavior is calm, cooperative. Pain: Complains of pain in palmar aspect of middle phalanx of right middle finger Pain currently is 10 out of 10 on a pain scale. 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 - Social history:: Smoking status: Reported history of juuling and/or vaping. Screenin:51 Abuse screen: Denies threats or abuse. Nutritional screening: No deficits noted. em Tuberculosis screening: No symptoms or risk factors identified. Fall Risk None identified. Assessment: 22:51 General: Appears in no apparent distress. comfortable, Behavior is calm, cooperative, em appropriate for age. Pain: Complains of pain in palmar aspect of middle phalanx of right middle finger Pain currently is 10 out of 10 on a pain scale. Neuro: Level of Consciousness is awake, alert, obeys commands, Oriented to person, place, time, situation, Appropriate for age. Cardiovascular: Capillary refill < 3 seconds Patient's skin is warm and dry. Respiratory: Airway is patent Respiratory effort is even, unlabored, Respiratory pattern is regular, symmetrical. Derm: Skin is intact, is healthy with good turgor, Skin is pink, warm \T\ dry. Wound noted palmar aspect of middle phalanx of right middle finger. Injury Description: Bite sustained to palmar aspect of middle phalanx of right middle finger caused by a dog, was sustained 1-2 hours ago. Vital Signs: 23:33 BP 140 / 91; Pulse 90; Resp 18; Temp 99.7; Pulse Ox 100% ; Weight 111.13 kg; Height 5 vg1 ft. 7 in. (170.18 cm); Pain 10/10; 23:33 Body Mass Index 38.37 (111.13 kg, 170.18 cm) vg1 ED Course: 23:08 Patient arrived in ED. bp1 23:38 Triage completed. vg1 23:38 Arm band placed on. vg1 23:41 Ike Kenyon NP is PHCP. pm1 23:41 Sarah Larios MD is Attending Physician. pm1 23:51 Wesley Barnes, MYRON is Primary Nurse. em 23:51 Patient has correct armband on for positive identification. em 11 00:42 Hand Right 3 View XRAY In Process Unspecified. EDMS 01:45 Assist provider with laceration repair on palmar aspect of middle phalanx of right em middle finger that was 2.5 cm. or less using sutures. Set up tray. Performed by Ike Kenyon SOCIAL WORKER PSYCHIATRIC Dressed with 4X4s, Kerlix, Neosporin, Patient tolerated well. 01:53 Madhav Fowler MD is Referral Physician. pm1 02:05 Patient did not have IV access during this emergency room visit. em Administered Medications: 00:10 Drug: HYDROcodone-acetaminophen 5 mg-325 mg 1 tabs Route: PO; em 01:44 Follow up: Response: No adverse reaction em 01:43 Drug: Lidocaine (1 %) 5 ml {Note: administered by MICHELLE Ramires.} Volume: 5 ml; Route: em Infiltration; Site: wound; 01:50 Follow up: Response: No adverse reaction; Marked relief of symptoms; Pain is decreased em 01:50 Drug: Augmentin (Amoxicillin-Clavulanate) 875 mg Route: PO; em 02:05 Follow up: Response: No adverse reaction em Outcome: 01:53 Discharge ordered by MD. pm1 02:05 Discharged to home ambulatory. em 02:05 Condition: stable 02:05 Discharge instructions given to patient, Instructed on discharge instructions, follow up and referral plans. medication usage, wound care, Demonstrated understanding of instructions, follow-up care, medications, wound care, Prescriptions given X 1. 02:05 Patient left the ED. em Signatures: Dispatcher [employer] Wesley Muhammad, RN RN Ike Hyatt NP SOCIAL WORKER PSYCHIATRIC pm1 Oma Bruno RN RN 1 Denise Avit[facility]
--- NOTE | 2021-01-07 01:55 | EDPHYS ---
Physician Documentation [facility] Name: Genna Daniel Age: 30 yrs Sex: Female : 1990 Arrival Date: 01/06/2021 Time: 23:08 Bed 12 Private MD: ED Physician Sarah Larios HPI: 01/07 00:05 This 30 yrs old Female presents to ER via Ambulatory with complaints of Dog pm1 Bite. 00:05 The patient was bitten on the palmar aspect of middle phalanx of right middle finger. pm1 Onset: The symptoms/episode began/occurred just prior to arrival. Animal information: The animal was reported to appear healthy. Animal's vaccinations are up to date. Patient owns the dog that bit her. Secondary to the bite the patient reports a laceration, irregular shaped. Associated signs and symptoms: Pertinent negatives: bony tenderness, motor deficit, numbness distal to wound, suspected foreign body. The patient has not experienced similar symptoms in the past. The patient has not recently seen a physician. Patient attempting to separate her dogs that were fighting resulting in laceration to right middle finger. 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 - Social history:: Smoking status: Reported history of juuling and/or vaping. ROS: 01/07 00:05 Constitutional: Negative for fever, chills, and weight loss, Cardiovascular: Negative pm1 for chest pain, palpitations, and edema, Respiratory: Negative for shortness of breath, cough, wheezing, and pleuritic chest pain. MS/extremity: Positive for laceration, pain, of the palmar aspect of middle phalanx of right middle finger, Negative for decreased range of motion, deformity. All other systems are negative. Exam: 00:05 Constitutional: This is a well developed, well nourished patient who is awake, alert, pm1 and in no acute distress. Head/Face: Normocephalic, atraumatic. 00:05 Cardiovascular: Exam negative for acute changes, Rate: normal, Rhythm: regular, Pulses: no pulse deficits are appreciated. 00:05 Respiratory: Exam negative for acute changes, respiratory distress, shortness of breath. 00:05 Musculoskeletal/extremity: Extremities: grossly normal except: noted in the palmar aspect of middle phalanx of right middle finger: laceration, There is no evidence of decreased ROM, deformity, Circulation is intact in all extremities. 00:05 Skin: Appearance: normal except for affected area, injury, laceration(s), the wound is approximately 1.5 cm(s), of the palmar aspect of middle phalanx of right middle finger, that can be described as clean, no foreign body, irregular, without bleeding. 00:05 Neuro: Exam negative for acute changes, Orientation: is normal, Mentation: is normal, Motor: is normal, moves all fours. Vital Signs: 01/06 23:33 BP 140 / 91; Pulse 90; Resp 18; Temp 99.7; Pulse Ox 100% ; Weight 111.13 kg; Height 5 vg1 ft. 7 in. (170.18 cm); Pain 10/10; 23:33 Body Mass Index 38.37 (111.13 kg, 170.18 cm) vg1 Laceration: 01/07 01:51 Wound Repair of 1.5cm ( 0.6in ) subcutaneous laceration to palmar aspect of middle pm1 phalanx of right middle finger. Irregularly shaped.. Distal neuro/vascular/tendon intact. Anesthesia: Local anesthetic administered with 0.5 mls of 1% lidocaine. Wound prep: Extensive cleansing with hibiclenz by me, Wound irrigation with saline by me, Wound explored extensively, Copious irrigation. Skin closed with 1 4-0 Prolene using simple sutures and sterile technique. Dressed with 4x4's, Kerlix. Patient tolerated well. MDM: 00:03 Patient medically screened. pm1 01:51 Data reviewed: vital signs. Data interpreted: Pulse oximetry: on room air is 100 %. pm1 Interpretation: normal. Counseling: I had a detailed discussion with the patient and/or guardian regarding: the historical points, exam findings, and any diagnostic results supporting the discharge/admit diagnosis, radiology results, the need for outpatient follow up, a hand specialist, to return to the emergency department if symptoms worsen or persist or if there are any questions or concerns that arise at home. 01/07 00:03 Order name: Hand Right 3 View XRAY pm1 01/07 00:04 Order name: Dressing - Wound; Complete Time: 02:05 pm1 01/07 00:04 Order name: Gloves, Sterile; Complete Time: 00:04 pm1 01/07 00:04 Order name: Prolene, Sutures; Complete Time: 02:05 pm1 01/07 00:04 Order name: Setup Suture Tray; Complete Time: 01:17 pm1 Administered Medications: 00:10 Drug: HYDROcodone-acetaminophen 5 mg-325 mg 1 tabs Route: PO; em 01:44 Follow up: Response: No adverse reaction em 01:43 Drug: Lidocaine (1 %) 5 ml {Note: administered by NP. Ike} Volume: 5 ml; Route: em Infiltration; Site: wound; 01:50 Follow up: Response: No adverse reaction; Marked relief of symptoms; Pain is decreased em 01:50 Drug: Augmentin (Amoxicillin-Clavulanate) 875 mg Route: PO; em 02:05 Follow up: Response: No adverse reaction em Disposition Summary: 01/07/21 01:53 Discharge Ordered Location: Home pm1 Problem: new pm1 Symptoms: have improved pm1 Condition: Stable pm1 Diagnosis - Bitten by dog pm1 - Laceration without foreign body of right middle finger without damage to nail pm1 Followup: pm1 - With: Emergency Department - When: As needed - Reason: Worsening of condition Followup: pm1 - With: Madhav Fowler MD - When: 2 - 3 days - Reason: Recheck today's complaints, Continuance of care, Re-evaluation by your physician Discharge Instructions: - Discharge Summary Sheet pm1 - Laceration Care, Adult pm1 - Animal Bite, Adult pm1 Forms: - Medication Reconciliation Form pm1 - Thank You Letter pm1 - Antibiotic Education pm1 - Prescription Opioid Use pm1 Prescriptions: - Augmentin 875-125 mg Oral Tablet - take 1 tablet by ORAL route every 12 hours for 10 days; 20 tablet; Refills: 0, pm1 Product Selection Permitted Signatures: Dispatcher [employer] Wesley Muhammad RN RN em Ike Kenyon, SILK SCREEN PAINTER SILK SCREEN PAINTER pm1 Oma Bruno, RN RN vg1
[2021-01-07 02:53] VITALS: BP 140/91; TEMP 99.7; O2SAT 100
--- NOTE | 2021-01-07 07:25 | RAD REPORT ---
EXAM DESCRIPTION: RAD - Hand Right 3 View - 01/07/2021 12:43 am CLINICAL HISTORY: ANIMAL BITE COMPARISON: No comparisons FINDINGS: No acute fracture. No malalignment. No significant focal degenerative changes. IMPRESSION: No acute osseous abnormality involving the right hand.
== END 2021-01-07 02:05 | disposition home or self-care (01) ==
LOC: ER 23:06
PROC: 0JQJ0ZZ Repair Right Hand Subcutaneous Tissue and Fascia, Open Approach (ICD-10-PCS; principal; 2021-01-07)
DX: S61.212A Laceration without foreign body of right middle finger without damage to nail, initial encounter (principal); W54.0XXA Bitten by dog, initial encounter; F41.9 Anxiety disorder, unspecified; E03.9 Hypothyroidism, unspecified
CPT/HCPCS: 99284